=== PATIENT | male | born 1950 | race Caucasian/White ===

== ENCOUNTER 2019-05-14 13:59 | Emergency (ER) | payer MEDICARE ==
[~2019-05-14] VITALS: Ht 167.6 cm; Wt 100.0 kg
[2019-05-14 14:02] VITALS: Ht 167.6 cm; Wt 100.0 kg
[2019-05-14] MEDS ORDERED: ASPIRIN325 MG PO (14:03)
[2019-05-14 14:44] LABS: ALBUMIN 3.7 g/dL (3.4-5.0); ALKALINE PHOSPHATASE 78 U/L (46-116); ALT (SGPT) 49 U/L (10-68); BASOPHILS 0.5 % (0-2); BILIRUBIN - TOTAL 0.39 mg/dL (0.2-1.3); CALC OSMOLALITY 279 mosm/kg (275-300); CALCIUM 9.1 mg/dL (8.5-10.1); CHLORIDE - SERUM 104 mmol/L (98-107); CREATININE - SERUM 0.9 mg/dL (0.6-1.3); EOSINOPHILS 3.7 % (0-7); GLUCOSE 124 mg/dL (74-106); HEMATOCRIT 43.4 % (42.0-54.0); HEMOGLOBIN 15.1 g/dL (13.5-17.5); IMMATURE GRANULOCYTES 0.3 % (0-5); LYMPHOCYTES 20.2 % (15-50); MCH 30.3 pg (26.0-34.0); MCHC 34.8 g/dL (31.0-37.0); MCV 87.1 fL (80.0-100.0); MEAN PLATELET VOLUME 10.1 fL (7.4-10.4); MONOCYTES 7.6 % (2-11); NEUTROPHILS 67.7 % (40-80); PLATELET COUNT 178 10x3/uL (130-400); POTASSIUM - SERUM 4.4 mmol/L (3.5-5.1); PROTEIN - SERUM 6.9 g/dL (6.4-8.2); RBC 4.98 10x6/uL (4.20-6.10); RDW 13.1 % (11.5-14.5); SODIUM 140 mmol/L (136-145); UREA NITROGEN 13 mg/dL (7-18); WBC 10.2 10x3/uL (4.8-10.8); eGFR NON AFRICAN AMERICAN 90 mL/min (90-120)
[2019-05-14 15:26] LABS: CKMB 0.2 U/L (0.0-3.6); CREATINE KINASE 74 UL (21-232); PRO BNP 107 pg/mL (0-125); TROPONIN-I < 0.017 ng/mL (0.000-0.060)
[2019-05-14 15:27] LABS: MAGNESIUM - SERUM 1.9 mg/dL (1.8-2.4); THYROID STIMULATING HORMONE 2.85 uIU/mL (0.36-3.74)
[2019-05-14] MEDS ORDERED: FUROSEMIDE20 MG PO (15:44)
[2019-05-14] MEDS ORDERED: NORVASC10 MG PO (15:44)
[2019-05-14 16:16] VITALS: BP 148/76
== END 2019-05-14 16:17 | disposition home or self-care (01) ==
LOC: D.ER 13:59
PROVIDERS: Emergency Medicine
DX: I10 Essential (primary) hypertension (principal); R60.9 Edema, unspecified

== ENCOUNTER → 2019-07-15 08:28 | Outpatient (CLI) | payer MEDICARE ==
[2019-05-14 14:02] VITALS: BMI 35.6
[~2019-07-15 08:28] MED LIST: ASPIRIN325 MG PO; BAYER CHEWABLE81 MG PO; FUROSEMIDE20 MG PO; LIPITOR20 MG PO; LISINOPRIL20 MG PO; NORVASC10 MG PO
--- NOTE | 2019-07-21 14:28 | EC ---
PATIENT:TREVOR DUNCAN DATE OF SERVICE: 07/15/19 SEX: M MEDICAL RECORD: [id number] DATE OF : [birth year] LOCATION:D[facility] AGE OF PATIENT: 69 ADMISSION DATE: 07/15/19 REFERRING PHYSICIAN: INTERPRETING PHYSICIAN: ARAVIND SAEED MD ECHOCARDIOGRAM REPORT ECHO CHARGES 4 ECHO COMPLETE Date: 07/15/19 CLINICAL DIAGNOSIS: HTN/MURMUR/EDEMA ECHOCARDIOGRAPHIC MEASUREMENTS (adult normal given) AC root (d.<3.7cm) 3.7 cm LV Septum d (<1.2 cm> 1.4 cm Valve Excursion 1.8 cm LV Septum (systole) 1.7 cm Left Atria (s.<4.0cm> 4.1 cm LVPW d(<1.2cm) 1.8 cm RV (d.<2.3cm) 3.6 cm LVPW (sytole) 1.8 cm LV diastole(<5.6CM) 4.5 cm MV E-F(>70mm/sec) cm LV systole 3.1 cm LVOT Diameter cm MV exc.(>10mm) 1.2 cm Est.ejection fraction (50-75%) % DOPPLER: LVIT cm/sec A 78.0 cm/sec E 90.0 cm/sec LA cm/sec RVSP 32 mmHg LVOT 110 cm/sec AOP1/2T 567 m/s Asc. Ao 147 cm/sec RVOT 95 cm/sec RA cm/sec PA 137 cm/sec AV Gradient Peak 8.66 mmHg AV Mean 4.74 mmHg AV Area 2.0 cm MV Gradient Peak 4.31 mmHg MV Mean 1.71 mmHg MV Area cm COMMENTS: Factory Assembler: 2 CORBY CRUZ Band Maker: 3 Dr. Monroe TAPE# PACS Pericardial Effusion N DATE OF SERVICE: 07/15/2019 Adequate 2D, color flow imaging, spectral Doppler, and M-Mode LVH is present. LV internal dimension is normal. Wall motion is normal. EF is greater than or equal to 55%. Aortic valve is tricuspid. No evidence of stenosis by Doppler interrogation. Mild AI by color-flow imaging. Left atrium is upper limits of normal with mildly dilated at 4.1 cm. Mitral valve shows no prolapse. Mild MR. Right-sided chambers are grossly normal. Mild TR. ECHOCARDIOGRAM REPORT [id number] PRICE TRANSINT:[id number] Voice Confirmation ID: [id number] DOCUMENT ID: [id number] ARAVIND SAEED MD at 1428 CC: [id number] DICTATION DATE: 07/16/19 1435 LARGE ENGINE ASSEMBLER: 07/16/19 1532 DEP CLI 07/15/19 [place] [id number] [place] [id number]
--- NOTE | 2019-07-29 14:31 | ST ---
PATIENT:TREVOR DUNCAN MEDICAL RECORD: [id number] SEX: M LOCATION:[facility] ORDER #: ADMISSION DATE: 07/15/19 AGE OF PATIENT: 69 REFERRING PHYSICIAN: INTERPRETING PHYSICIAN: MARLIN PATTERSON MD DATE OF SERVICE: 07/15/2019 PROCEDURE: Nuclear stress test. INDICATION: Angina, abnormal ECG, hypertension. He was exercised on standard Harry protocol for 5 minutes achieving greater than 85% max target heart rate response with 27 mCi of sestamibi injected at peak stress, 10 mCi used previously for rest images. FINDINGS: Gated SPECT reveals preserved ejection fraction at 51% with good wall motion and thickening and brightening throughout all segments. SPECT imaging Cardiolite was used as myocardial perfusion agent. There are large areas of reversibility anteriorly, inferiorly and apically. The degree of reversibility anteriorly is moderate, inferiorly is moderate, and apically is mild. IMPRESSION: This is a markedly abnormal nuclear stress test, large areas of reversible ischemia anteriorly, inferiorly and apically suggestive of multivessel coronary artery disease and a high risk nuclear stress test. TRANSINT:[id number] Voice Confirmation ID: [id number] DOCUMENT ID: [id number] MARLIN PATTERSON MD at 1431 CC: JENNIFER MCWILLIAMS MD [id number] DICTATION DATE: 07/17/19 1040 APPLIED MATHEMATICIAN: 07/18/19 0012 DEP CLI 07/15/19 [place] [id number] [place] [address]
[2019-08-06 11:00] VITALS: BMI 38.3
== END | disposition home or self-care (01) ==
LOC: D.HCCARDIO 08:28
PROVIDERS: ATTEND Internal Medicine Interventional Cardiology
DX: I20.9 Angina pectoris, unspecified (principal); I10 Essential (primary) hypertension

== ENCOUNTER 2019-08-06 10:19 | Outpatient (CLI) | payer MEDICARE ==
[~2019-08-06] VITALS: Ht 165.1 cm; Wt 104.5 kg
--- NOTE | ~2019-08-06 | HEMODYNAMI ---
PATIENT:TREVOR DUNCAN MEDICAL RECORD: [id number] : 54 LOCATION:[facility] ADMISSION DATE: 08/06/19 Generatedon:08/06/201913:35 Patient name: TREVOR DUNCAN Patient #: [id number] SSN: [id number] : 1950 Date of study: 08/06/2019 Page: Of Hemodynamic Procedure Report Patient Data Patient Demographics Procedure consent was obtained First Name: TREVOR Gender: Male Last Name: DAKOTA : 1950 Patient #: [id number] Age: 69 year(s) Race: SSN: [id number] Additional ID: [id number] Contact details Address: [place] [address] State: [place] City: [place] Zip code: [address] Past Medical History Allergies: No known allergies Admission Admission Data Admission Date: 08/06/2019 Admission Time: 10:19 Arrival Date: 08/06/2019 Arrival Time: 0:00 [facility] Pay[facility] Medicare [facility] #: [id number] Height (in.): 64.96 BSA: 2.1 (m2) Height (cm.): 165 BMI: 38.57 (kg/m2) Weight (lbs.): 231.49 Weight (kg.): 105 Lab Results Lab Result Date: 08/06/2019 Lab Result Time: 0:00 Biochemistry Name Units Result Min Max BUN mg/dl 23 --(----)-* 7 18 Creatinine mg/dl 1.2 --(---*)-- 0.6 1.3 eGFR ml/min 64.39267 *-(----)-- 90 120 NONAFRICAN CBC Name Units Result Min Max Hematocrit % 40.7 -*(----)-- 42 54 Hemoglobin g/dl 14.4 --(*---)-- 13.5 17.5 Procedure Procedure Types Cath Procedure Diagnostic Procedure C [facility] w/Coronaries Sedation Charges Moderate Sedation up to 15 minutes Procedure Description Procedure Date Procedure Date: 08/06/2019 Procedure Start Time: 13:06 Procedure End Time: 13:31 Procedure Staff Name Function Cornell Delaney MD Performing Physician Gunjan Mendoza RT Monitor Verónica Adorno RT Scrub Jesús Angela RN Nurse Procedure Data Cath Procedure Fluoroscopy Diagnostic fluoroscopy Total fluoroscopy Time: time: 11.4 min 11.4 min Diagnostic fluoroscopy Total fluoroscopy dose: dose: 1164 mGy 1164 mGy Contrast Material Contrast Material Type Amount (ml) Isovue 300 143 Entry Location Entry Primary Successful Side Size Upsize Upsize Entry Closure Arthur ccessful Closure Location (Fr) 1 (Fr) 2 (Fr) Remarks Device Remarks Radial Right 6 Fr Mechanical artery Short Compression Estimated blood loss: 5 ml Diagnostic catheters Device Type Used For End Catheter Placement DIAGNOSTIC [place] 110cm 5 Procedure Fr catheter ([id number]) DIAGNOSTIC JL 3.5 5Fr Procedure catheter ([id number]) DIAGNOSTIC AR MOD 5Fr Procedure Catheter ([id number]) DIAGNOSTIC JL 3.5 5Fr Procedure catheter ([id number]) DIAGNOSTIC AL1 5Fr Procedure catheter ([id number]) Procedure Complications No complications Procedure Medications Medication Administration Route Dosage 0.9% NaCl I.V. 100 ml/hr Oxygen etCO2 Nasal cannula 2 l/min Heparin Flush Bag added to field 2 bags (1000units/500ml NS) Lidocaine 2% added to field 20 Radial Cocktail added to field 1 syringe (Verapamil 2mg/Nitro 400mcg/Heparin 1500units) Benadryl I.V. 50 mg Versed I.V. 1 mg Fentanyl I.V. 50 mcg Radial Cocktail I.A. 1 syringe (Verapamil 2mg/Nitro 400mcg/Heparin 1500units) Hemodynamics Rest BSA: 2.1 (m2) HGB: 14.4 (g/dl) O2 Consumption: Estimated: 235.73 (ml/min) O2 Con sumption indexed: Estimated:112.25 (ml/min/m) Heart Rate: 59 (bpm) Pressure Samples Time Site Value (mmHg) Purpose Heart Use Rate(bpm) 13:08 LV 98/4,5 Snapshot 91 13:08 AO 94/62(76) Pullback 78 13:08 LV 102/5,18 Pullback 78 Gradients Valve Time Site 1 Site 2 Mean SEP/DFP Peak To Heart Use (mmHg) (sec/min) Peak Rate (mmHg) (bpm) Aortic 13:08 LV AO 7 16 8 78 102/5,18 94/62(76) Calculations Valve P-P Mean Valve Index Valve Source Name Gradient Area Flow (cm2) Aortic 8 7 8 7 Snapshots Pre Cath Intra NCS Post Cath Vital Signs Time Heart Resp SPO2 etCO2 NIBP (mmHg) Rhythm Pain Sedation Rate (ipm) (%) (mmHg) Status Level (bpm) 12:43:26 66 15 97 41.1 124/76(106) NSR 0 (11) 10(A) , No pain 12:47:38 79 26 97 32.9 120/83(105) NSR 0 (11) 10(A) , No pain 12:51:44 81 22 95 13.4 112/77(101) NSR 0 (11) 10(A) , No pain 12:55:54 81 23 91 48.7 107/70(88) NSR 0 (11) 10(A) , No pain 13:00:02 76 26 97 11.9 122/76(99) NSR 0 (11) 10(A) , No pain 13:04:16 74 29 86 0 125/72(87) NSR 0 (11) 10(A) , No pain 13:08:25 80 25 95 28.4 96/46(68) NSR 0 (11) 10(A) , No pain 13:12:35 76 25 96 29.2 95/53(83) NSR 0 (11) 9(A) , No pain 13:16:41 73 22 97 34.4 99/62(82) NSR 0 (11) 9(A) , No pain 13:20:49 68 23 93 18.7 101/61(76) NSR 0 (11) 9(A) , No pain 13:24:59 71 25 96 35.2 103/57(81) NSR 0 (11) 9(A) , No pain 13:29:13 73 25 95 33.7 91/52(72) NSR 0 (11) 9(A) , No pain Medications Time Medication Route Dose Verified Delivered Reason Notes Effectiveness by by 12:43:14 0.9% NaCl I.V. 100 Jesús Jesús Per ml/hr Julio César Angela physician RN RN 12:43:25 Oxygen etCO2 2 l/min Jesús Jesús for low 02 Nasal Lorigan Julio César sats cannula RN RN 12:43:38 Heparin Flush added 2 bags Jesús Jesús used for Bag to Lorigan Lorigan procedure (1000units/500ml field RN RN NS) 12:43:50 Lidocaine 2% added 20ml Jesús Jesús for local to vial Lorigan Lorigan anesthetic RN RN 12:47:10 Radial Cocktail added 1 Jesús Jesús used for (Verapamil to syringe Lorigan Lorigan procedure 2mg/Nitro field RN RN 400mcg/Heparin 1500units) 12:47:20 Benadryl I.V. 50 mg Jesús Jesús Per Lorgianna Angela physician RN RN 13:05:55 Versed I.V. 1 mg Jesús Jesús for sedation Julio César Angela RN RN 13:06:04 Fentanyl I.V. 50 mcg Jesús Jesús for sedation Julio César Angela RN RN 13:07:31 Radial Cocktail I.A. 1 Jesús Cornell for (Verapamil syringe Lorigan Rhett vasodilation 2mg/Nitro AREN FREEMAN 400mcg/Heparin 1500units) Procedure Log Time Note 12:15:57 Patient Weight : 231.49 lbs 12:16:13 Patient Height : 64.96 inches 12:16:35 Patient allergic to No known allergies 12:17:10 Lab Result : BUN 23 mg/dl 12:17:10 Lab Result : eGFR NONAFRICAN 64.72045 ml/min 12:17:10 Lab Result : Creatinine 1.2 mg/dl 12:17:10 Lab Result : Hemoglobin 14.4 g/dl 12:17:10 Lab Result : Hematocrit 40.7 % 12:18:08 Insurance Payor : Medicare 12:19:34 Arrival Date: 08/06/2019 12:00:00 AM 12:21:11 Signed procedure consent form obtained from patient. 12:21:14 Procedure Status Elective Heart Cath (OP). 12:21:16 Time tracking: Regular hours (M-F 7:00 - 5:00) 12:21:19 Plan of Care:Hemodynamics will remain stable., Cardiac rhythm will remain stable., Comfort level will be maintained., Respiratory function will remain adequate., Patient/ family verbilizes understanding of procedure., Procedure tolerated without complication., Recovers from procedure without complications.. 12:25:45 Jesús Lorigan RN sent for patient. Start room use. 12:31:31 Patient received from Pre/Post Procedure Room to CCL 1 Alert and oriented. Tansferred to table in Supine position. 12::33 Warm blankets applied, and vicky hugger turned on for patient comfort. 12::33 Correct patient and procedure confirmed by team. 12:31:34 ECG and BP/O2 sat monitors applied to patient. 12:42:24 Vital chart was started 12:42:25 Baseline sample Acquired. 12:42:28 Rhythm: sinus rhythm 12:42:29 Full Disclosure recording started 12:42:38 H&P Date Dictated: 08/06/2019 New H&P dictated by physician.. 12:42:39 Pre-procedure instructions explained to patient. 12:42:39 Pre-op teaching completed and patient verbalized understanding. 12:42:41 Family unavailable. 12:42:42 Patient NPO since Midnight. 12:42:44 Is patient on blood thinner?No 12:42:48 Patient diabetic? Yes. 12:42:54 If diabetic: On Metformin? No 12:42:56 Previous problem with sedation/anesthesia? No ? 12:42:57 Snore? Yes 12:42:58 Sleep apnea? Yes 12:42:59 Deviated septum? No 12:43:00 Opens mouth fully? Yes 12:43:01 Sticks out tongue? Yes 12:43:03 Airway obstruction? No ? 12:43:10 Dentures? No ? 12:43:14 0.9% NaCl 100 ml/hr I.V. was administered by Jesús Angela RN; Per physician; 12:43:14 Pre procedure: right dorsailis pedis pulse 1+ Palpable, but thready & weak; easily obliterated 12:43:15 Modified Jose's test Ulnar < 7 seconds 12:43:18 Patient pain scale 0/10 ?. 12:43:23 IV patent on arrival in left hand with 0.9% NaCl at [facility]. 12:43:25 Oxygen 2 l/min etCO2 Nasal cannula was administered by Jesús Angela RN; for low 02 sats; 12:43:26 Lab results completed and on chart. 12:43:30 Right Radial & Right Groin area was prepped with chlora-prep and draped in sterile fashion 12:43:31 Alarms reviewed by R. N. 12:43:32 Sharps counted by scrub and verified by R.N. 12:43:38 Heparin Flush Bag (1000units/500ml NS) 2 bags added to field was administered by Jesús Angela RN; used for procedure; 12:43:50 Lidocaine 2% 20ml vial added to field was administered by Jesús Angela RN; for local anesthetic; 12:47:10 Radial Cocktail (Verapamil 2mg/Nitro 400mcg/Heparin 1500units) 1 syringe added to field was administered by Jesús Angela RN; used for procedure; 12:47:20 Benadryl 50 mg I.V. was administered by Jesús Angela RN; Per physician; 12:48:40 Use device set Radial Dx or PCI 12:48:41 ACIST Syringe (06016) opened to sterile field. 12:48:42 Bag Decanter (2001S) opened to sterile field. 12:48:42 ACIST Hand Control (37395) opened to sterile field. 12:48:43 ACIST Manifold (08203) opened to sterile field. 12:48:44 Tegaderm 4 x 4 (1626W) opened to sterile field. 12:48:46 Medline Cath Pack ([id number]) opened to sterile field. 12:48:47 MBrace Wrist Support (546044700) opened to sterile field. 12:48:49 EMERALD Guide Wire (353-635) opened to sterile field. 12:48:49 SHEATH 6FR RAIN (6791251) opened to sterile field. 12:51:20 Zero performed for pressure channel P1 12:51:26 Zero performed for pressure channel P1 13:02:53 --------ALL STOP TIME OUT------ 13:02:54 Final Timeout: patient, procedure, and site verified with staff and physician. All members of the team are in agreement. 13:02:55 Right Radial & Right Groin site verified by team. 13:02:59 Fire Safety Assessment: A--An alcohol-based skin anteseptic being used preoperatively., C--Open oxygen or nitrous oxide is being used., D--An ESU, laser, or fiber-optic light is being used. 13:03:03 Physical assessment completed. ASA score P 2 - A patient with mild systemic disease as per Cornell Delaney MD. 13:03:07 2) 60-89 Mildly reduced kidney function, and other findings (as for stage 1) point to kidney disease. 13:03:11 Maximum allowable contrast dose (3.7 X eGFR X 0.75)178 ml. 13:03:15 Sedation plan: IV Moderate Sedation Medication:Versed, Fentanyl 13:05:48 Procedure started. 13:05:55 Versed 1 mg I.V. was administered by Jesús Angela RN; for sedation; 13:06:04 Fentanyl 50 mcg I.V. was administered by Jesús Angela RN; for sedation; 13:06:09 Local anesthetic to right radial artery with Lidocaine 2% by Cornell Delaney MD.INITIAL ACCESS ONLY 13:06:48 A 6 Fr Short sheath was inserted into the Right Radial artery 13:07:17 A DIAGNOSTIC [place] 110cm 5 Fr catheter (593164) was advanced over the wire and used for Procedure. 13:07:31 Radial Cocktail (Verapamil 2mg/Nitro 400mcg/Heparin 1500units) 1 syringe I.A. was administered by Cornell Delaney MD; for vasodilation; 13:07:45 LV gram done using LAM 13:07:53 Injector settings: Ml/sec: 5, Volume: 15, 13:08:06 LV hemodynamics recorded. 13:08:39 EF : 55 % 13:12:23 Catheter exchanged over wire. 13:12:38 UNABLE TO ENGAGE LCA AND RCA 13:14:02 A DIAGNOSTIC JL 3.5 5Fr catheter (485465I) was advanced over the wire and used for Procedure. 13:16:34 UNABLE TO ENGAGE LCA 13:16:35 Catheter exchanged over wire. 13:17:12 A DIAGNOSTIC AR MOD 5Fr Catheter (191605N) was advanced over the wire and used for Procedure. 13:17:58 RCA angiography performed. 13:18:02 Catheter exchanged over wire. 13:18:26 GUIDE 6FR XBLAD 3.5 catheter (16703140) opened to sterile field. 13:18:50 6 Fr XBLAD 3.5 guide catheter was inserted over the wire 13:22:42 Guide Catheter removed. unable to cannulate vessel. 13:23:57 A DIAGNOSTIC JL 3.5 5Fr catheter (134290L) was advanced over the wire and used for Procedure. 13:24:59 UNABLE TO ENGAGE LCA 13:25:37 A DIAGNOSTIC AL1 5Fr catheter (674740S) was advanced over the wire and used for Procedure. 13:26:45 LCA angiography performed. 13:27:00 Catheter removed. 13::57 Procedure ended.(Physican Out) 13:28:02 ZEPHYR REGULAR TR BAND (637361) opened to sterile field. 13:28:47 Sheath removed intact; hemostasis achieved with Mechanical Compression to the Right Radial artery. 13:28:51 Fluoroscopy time 11.40 minutes. 13:28:56 Fluoroscopy dose: 1164 mGy 13:28:56 Flurop Dose total: 1164 13:29:05 Dose Area Product 88440 mGy/cm. 13:29:09 Contrast amount:Isovue 300 143ml. 13:29:29 Maximum allowable dose exceeded? No. 13:29:35 Sharps counted by scrub and verified by R.N. 13:29:39 [place] band inflated with 9cc of air. 13:29:44 Post-procedure physical assessment completed. ASA score P 2 - A patient with mild systemic disease as per Cornell Delaney MD. 13:29:47 Post procedure rhythm: sinus rhythm 13:29:51 Estimated blood loss: 5 ml 13:29:52 Post procedure instruction explained to patient.Patient verbalizes understanding. 13:29:52 Patient needs reinforcement of post procedure teaching. 13:30:26 Procedure type changed to Cath procedure, Diagnostic procedure, LHC, LHC w/Coronaries, Sedation Charges, Moderate Sedation up to 15 minutes 13:30:50 Procedure and supply charges have been captured, reviewed, submitted and are correct. 13:30:54 Procedure Complication : No complications 13::57 Vital chart was stopped 13::57 See physician's report for complete and final results. 13::59 Report given to Pre/Post Procedure Room. 13:31:02 Patient transfered to Pre/Post Procedure Room with Bed. 13:31:05 Procedure ended. 13:31:05 Full Disclosure recording stopped 13:31:13 End room use (Document Last) Device Usage Item Name Manufacture Quantity Catalog Hospital Part Current Minima l Lot# / Number Charge Number Stock Stock Serial# Code [facility] 1 23517 131669 564664 [id number] 20 Syringe Medical (30300) Systems Inc Bag Microtek 1 2001S 004340 09587 660998 5 Decanter Medical Inc. () ACIST Hand Acist 1 61166 393326 275842 409774 5 Control Medical (38952) Systems Inc ACIST Acist 1 75550 356385 902554 580427 5 Manifold Medical (95363) Systems Inc Tegaderm 4 3M 1 1626W 859601 158953 394853 5 x 4 (1626W) Medline Medline 1 [id number] 197163 14444 421651 5 Cath Pack (DGHL69293) MBrace Advanced 1 140-0250-00 199791 32093 047252 5 Wrist Vascular Support Dynamics (371439486) EMERALD Cardinal 1 502-455 236641 327354 137904 5 Guide Wire Health (502455) SHEATH 6FR Cardinal 1 8706138 400665 1992951 628494 5 [facility] (0380620) DIAGNOSTIC Terumo 1 40-5013 308093 225172 100261 5 [place] 110cm 5 Fr catheter (581648) DIAGNOSTIC Cardinal 1 093822K 677292 670213 487177 5 JL 3.5 5Fr Health catheter (752572G) DIAGNOSTIC Cardinal 1 084023P 409833 921208 964680 15 AR MOD 5Fr Health Catheter (679528P) GUIDE 6FR Cardinal 1 [id number] 343620 068894 544665 10 XBLAD 3.5 Health catheter (24592768) DIAGNOSTIC Cardinal 1 775750Q 693520 793881 453142 15 AL1 5Fr Health catheter (100150Q) ZEPHYR Cardinal 1 657791 993371 1473752 488176 5 REGULAR TR Health BAND (855190) Signature Audit [place] Stage Time Signature Unsigned Intra-Procedure 08/06/2019 Gunjan Mendoza 1:34:11 PM RT(R) Intra-Procedure 08/06/2019 Jesús 1:34:52 PM Julio César YOUNGER Intra-Procedure 08/06/2019 Cornell Ortega 1:35:29 PM Thai FREEMAN [facility] [address] [facility] [place] [address]
[~2019-08-06 10:19] MED LIST changes: -BAYER CHEWABLE81 MG PO; -LIPITOR20 MG PO; -LISINOPRIL20 MG PO
[2019-08-06] MEDS ORDERED: LISINOPRIL20 MG PO (10:43)
[2019-08-06] MEDS ORDERED: BAYER CHEWABLE81 MG PO (10:44)
[2019-08-06] MEDS ORDERED: LIPITOR20 MG PO (10:44)
[2019-08-06 11:00] VITALS: BP 140/80; Ht 165.1 cm; Wt 104.5 kg
[2019-08-06 11:11] LABS: BASOPHILS 0.5 % (0-2); EOSINOPHILS 3.7 % (0-7); HEMATOCRIT 40.7 % (42.0-54.0); HEMOGLOBIN 14.4 g/dL (13.5-17.5); IMMATURE GRANULOCYTES 0.2 % (0-5); LYMPHOCYTES 18.4 % (15-50); MCH 31.1 pg (26.0-34.0); MCHC 35.4 g/dL (31.0-37.0); MCV 87.9 fL (80.0-100.0); MEAN PLATELET VOLUME 10.6 fL (7.4-10.4); MONOCYTES 7.7 % (2-11); NEUTROPHILS 69.5 % (40-80); PLATELET COUNT 178 10x3/uL (130-400); RBC 4.63 10x6/uL (4.20-6.10); RDW 13.2 % (11.5-14.5); WBC 8.9 10x3/uL (4.8-10.8)
[2019-08-06 11:25] LABS: CALCIUM 8.7 mg/dL (8.5-10.1); CARBON DIOXIDE 28.5 mmol/L (21.0-32.0); CREATININE - SERUM 1.2 mg/dL (0.6-1.3); POTASSIUM - SERUM 4.5 mmol/L (3.5-5.1)
[2019-08-06 11:30] LABS: LDL-HDL RATIO 0.9 ratio (1.5-3.5)
--- NOTE | 2019-08-06 13:45 | NUR ---
PATIENT ARRIVED TO ROOM 5 VIA STRETCHER, PLACED ON CM. VSS ON 2L NC. RIGHT Z BAND IN PLACE, NO S/S OF BLEEDING OR HEMATOMA. NO C/O PAIN, NUMBNESS, OR TINGLING.
--- NOTE | 2019-08-06 14:00 | NUR ---
PATIENT RESTING, VSS ON 2L NC. RIGHT Z BAND IN PLACE, NO S/S OF BLEEDING OR HEMATOMA. NO C/O PAIN, NUMBNESS, OR TINGLING.
--- NOTE | 2019-08-06 14:30 | NUR ---
PATIENT AWAKE, SITTING UP IN BED. VSS ON 1L NC. PATIENT VIOLENTLY COUGHING, STATES HE "SWALLOWED WRONG". RN AT BEDSIDE, SPO2 97% ON 1L NC. NO ACUTE DISTRESS. LUNGS AUSCULTATED, CLEAR BREATH SOUNDS THROUGHOUT. WILL CONTINUE TO MONITOR.
--- NOTE | 2019-08-06 14:45 | NUR ---
PATIENT ONLY COUGHING INTERMITTENTLY, NO S/S OF RESPIRATORY DISTRESS. SPO2 94% ON ROOM AIR. NO C/O PAIN, NUMBNESS, OR TINGLING. RIGHT Z BAND IN PLACE, 3CC OF AIR REMOVED, NO S/S OF BLEEDING OR HEMATOMA. NO N/V.
--- NOTE | 2019-08-06 15:15 | NUR ---
PATIENT AWAKE, VSS ON ROOM AIR. REMAINING AIR REMOVED FROM Z BAND, NO S/S OF BLEEDING OR HEMATOMA. DRESSING APPLIED IS CDI. IV REMOVED.
--- NOTE | 2019-08-06 15:45 | NUR ---
PATIENT DRESSED. WRITTEN AND VERBAL EDUCATION REGARDING DISCHARGE INSTRUCTIONS AND MEDICATION COMPLIANCE. RIGHT RADIAL DRESSING IS CDI, NO S/S OF BLEEDING OR HEMATOMA. PATIENT REFUSED WHEELCHAIR, ACCOMPANIED TO WAITING ROOM TO WAIT FOR RIDE PER PATIENT REQUEST. ALL BELONGINGS WITH PATIENT.
--- NOTE | 2019-08-07 12:52 | OP ---
PATIENT NAME: TREVOR DUNCAN MEDICAL RECORD: [id number] :54 LOCATION:D.[facility] ADMISSION DATE: SURGEON: ARAVIND SAEED MD DATE OF OPERATION: 08/06/2019 PROCEDURE: Left heart catheterization, selective coronary angiography, right radial approach. CATHETERS: Radial sheath, [place] catheter. The procedure was well tolerated. The patient was returned to soriano. Sheath was removed. TR band was placed. FINDINGS: Left ventriculography 30-degree LAM view: Normal wall motion and normal systolic function. CORONARY ANATOMY: LEFT MAIN: Left main is free of disease. LAD: Free of disease in the diagonal system. CIRCUMFLEX: Free of disease in the marginal system. RIGHT CORONARY ARTERY: Somewhat codominant system. Right coronary is free of disease. IMPRESSION: Normal LV systolic function, normal coronary anatomy. TRANSINT:[id number] Voice Confirmation ID: [id number] DOCUMENT ID: [id number] ARAVIND SAEED MD at 1252 CC: [id number] DICTATION DATE: 08/06/19 1336 TECHNICAL SALES DIRECTOR: 08/06/19 1510 DEP CLI 08/06/19 [facility] [address] [place] [address]
--- NOTE | 2019-08-07 12:52 | HP ---
PATIENT: TREVOR DUNCAN MEDICAL RECORD: [id number] ACCOUNT: [id number] LOCATION:[facility] : 54 ADMISSION DATE: 08/06/19 PCP: JENNIFER MCWILLIAMS MD HISTORY AND PHYSICAL EXAMINATION HISTORY OF PRESENT ILLNESS: This is a 69-year-old gentleman seen in the office with hypertension, hyperlipidemia, abnormal ECG symptoms consistent with class III angina, underwent Cardiolite stress test in the office, noted to have reversible ischemia, both anterior, inferior and apically, being brought to the cath lab radiology technician to delineate anatomy. PHYSICAL EXAMINATION: GENERAL: Pleasant gentleman, in no acute distress, appears stated age. VITAL SIGNS: Pulse 71 and regular, blood pressure 124/64. HEENT: Normocephalic, atraumatic. NECK: No JVD or bruit. HEART: Regular. LUNGS: Mendoza clear. ABDOMEN: Soft, nontender. EXTREMITIES: Pulses 2+ with no edema. DIAGNOSTIC DATA: A nuclear stress testing is abnormal as described above. IMPRESSION: Class III angina with progressive symptoms, markedly abnormal nuclear stress testing. PLAN: For angiography, intervention based on above. TRANSINT:[id number] Voice Confirmation ID: [id number] DOCUMENT ID: [id number] ARAVIND SAEED MD at 1252 CC: [id number] DICTATION DATE: 08/06/19 1338 ACETYLENE TORCH BURNER: 08/06/[address] [facility] CLI 08/06/19 [place] [address] [place] [address]
== END 2019-08-06 15:45 ==
LOC: D.CATH 10:19 → D.CLR 10:30 → D.CATH 13:00
PROVIDERS: ATTEND Internal Medicine Interventional Cardiology
DX: I20.0 Unstable angina (principal); R94.30 Abnormal result of cardiovascular function study, unspecified; R06.02 Shortness of breath